=== PATIENT | female | born 1990 | race Caucasian/White ===

== ENCOUNTER 2018-09-05 16:25 | Emergency (ER) | payer OTHER ==
[2018-09-05 16:28] VITALS: BP 123/74; TEMP 97.7; BMI 26.2
--- NOTE | 2018-09-05 17:01 | ED.PDOC ---
General ED Provider: Dr. ERIK CROUCH Chief Complaint: Body Fluid Exposure Stated Complaint: BODY FLUID( BLOOD) EXPOSURE Time Seen by Physician: 16:50 (10 WEEKS OF ) Mode of Arrival: Walk-In Information Source: Patient Exam Limitations: No limitations Nursing and Triage Documentation Reviewed and Agree: Yes Does patient meet sepsis criteria?: Yes If yes, has appropriate treatment been initiated?: No System Inflammatory Response Syndrome: Not Applicable Sepsis Protocol: For patient's 13 years and over: Temp is 96.8 and below OR 101 and greater Pulse >90 BPM Resp >20/minute Acutely Altered Mental Status Are patient's symptoms suggestive of a new infection, such as: -Pneumonia -Skin, Soft Tissue -Endocarditis -UTI -Bone, Joint Infection -Implantable Device -Acute Abdominal Infection -Wound Infection -Meningitis -Blood Stream Catheter Infection -Unknown Miscellaneous Complaint Exam - Needlestick/Body Fluid Exposure Exam Patient Complains of: Body fluid exposure Contamination: Intact skin Date of Incident: TODAY Time of Incident: TODAY Bleeding at Site: No Body Fluid Exposure: Reports: Blood Prior Hepatitis B Vaccine: Yes Source Information: Denies: HIV, Hepatitis Needlestick Risk Factors-High Risk: Absent: Large bore needle, Deep puncture, Large volume, Long exposure, Source w/ advanced HIV Needlestick Risk Factors-Low Risk: Present: Few drops, Source asymptomatic Discussed Post-Exposure Prophylaxis (PEP) for HIV: Denied Discussed PEP for Hepatitis-B: Denied Serologic Testing (HIV/HBV) Declined By Patient: Yes Findings: Present: Other (FACIAL SPLASH) Review of Systems - Review Of Systems Constitutional: Reports: No symptoms Eyes: Reports: No symptoms Ears, Nose, Mouth, Throat: Reports: No symptoms Respiratory: Reports: No symptoms Cardiac: Reports: No symptoms GI: Reports: No symptoms : Reports: No symptoms Musculoskeletal: Reports: No symptoms Skin: Reports: No symptoms Neurological: Reports: No symptoms Endocrine: Reports: No symptoms Hematologic/Lymphatic: Reports: No symptoms All Other Systems: Reviewed and Negative Past Medical History - Past Medical History Previously Healthy: Yes Endocrine: Reports: None Cardiovascular: Reports: None Respiratory: Reports: None Hematological: Reports: None Gastrointestinal: Reports: None Genitourinary: Reports: None Neuro/Psych: Reports: None Musculoskeletal: Reports: None Cancer: Reports: None Last Menstrual Period: jul 04 - Surgical History General Surgical History: Reports: None - Family History Family History: Reports: None - Social History Smoking Status: Never smoker Hx Substance Use: No Alcohol Screening: None Physical Exam - Physical Exam Appearance: Well-appearing, No pain distress, Well-nourished Eyes: MARVA, EOMI, Conjunctiva clear ENT: Ears normal, Nose normal, Oropharynx normal Respiratory: Airway patent, Breath sounds clear, Breath sounds equal, Respirations nonlabored Cardiovascular: RRR, Pulses normal, No rub, No murmur GI/: Soft, Nontender, No masses, Bowel sounds normal, No Organomegaly Musculoskeletal: Normal strength, ROM intact, No edema, No calf tenderness Skin: Warm, Dry, Normal color Neurological: Sensation intact, Motor intact, Reflexes intact, Cranial nerves intact, Alert, Oriented Psychiatric: Affect appropriate, Mood appropriate Critical Care Note - Critical Care Note Total Time (mins): 0 Course - Course Orders, Labs, Meds: Orders Category Date Time Status MISCELLANEOUS SEND OUT Stat LAB 09/05/18 16:44 Ordered Vital Signs: Temp Pulse Resp BP Pulse Ox 09/05/18 16:25 97.7 F 64 18 123/74 98 Departure - Departure Time of Disposition: 17:01 Disposition: HOME SELF-CARE 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 Allergies/Adverse Reactions: Allergies No Known Allergies Allergy (Verified 09/05/18 16:29) Home Medications: Ambulatory Orders Vit37/Iron/Folic Acid [Prenata Chewable Tablet] 1 each PO DAILY
== END 2018-09-05 17:08 | disposition home or self-care (01) ==
LOC: ED 16:25
DX: Z77.21 Contact with and (suspected) exposure to potentially hazardous body fluids (principal); Y99.0 Civilian activity done for income or pay; Z33.1 Pregnant state, incidental
CPT/HCPCS: 36415; 99282

== ENCOUNTER 2019-01-04 08:20 | Outpatient (CLI) | END 2019-01-04 08:21 | disposition home or self-care (01) | LOC: LAB 08:20 | PROVIDERS: ATTEND General Practice | DX: Z77.21 Contact with and (suspected) exposure to potentially hazardous body fluids (principal); Y99.0 Civilian activity done for income or pay | CPT/HCPCS: 36415 ==

== ENCOUNTER 2019-01-09 08:07 | Outpatient (CLI) | END 2019-01-09 08:08 | disposition home or self-care (01) | LOC: LAB 08:07 | PROVIDERS: ATTEND Obstetrics & Gynecology | DX: O99.810 Abnormal glucose complicating pregnancy (principal) | CPT/HCPCS: 36415; 82951 ==